=== PATIENT | female | born 1990 ===

== ENCOUNTER 2017-02-12 05:05 | Inpatient (IN) | payer OTHER ==
[~2017-02-12] VITALS: Ht 162.6 cm; Wt 121.6 kg
[2017-02-12 05:57] VITALS: BP 107/72
[2017-02-12 06:38] LABS: ABSOLUTE BASOPHIL COUNT 0 /CUMM (0.0-0.2); ABSOLUTE EOSINOPHIL COUNT 0.1 /CUMM (0.0-0.7); ABSOLUTE LYMPH COUNT 2.1 /CUMM (1.2-3.4); ABSOLUTE MONOCYTE COUNT 0.7 /CUMM (0.10-0.60); BASOPHIL % 0.1 % (0.0-2.0); EOSINOPHIL % 0.7 % (0-5); GRANULOCYTE % 75.9 % (42.2-75.2); HEMATOCRIT 34.7 % (37-47); MEAN CORPUSCULAR HGB 27.8 PG (27.0-31.0); MEAN CORPUSCULAR HGB CONC 32.6 G/DL (33.0-37.0); MEAN CORPUSCULAR VOLUME 85.2 FL (81.0-99.0); MEAN PLATELET VOLUME 8.1 FL (7.4-10.4); PLATELET COUNT 250 /CUMM (130-400); RBC DISTRIBUTION WIDTH 14.9 % (11.5-14.5); RED BLOOD CELL CT 4.07 /CUMM (4.20-5.40); WHITE BLOOD CELL COUNT 11.9 /CUMM (4.8-10.8)
--- NOTE | 2017-02-12 11:48 | History & Physical ---
See Addendum General Information and HPI MD Statement: I have seen and personally examined BLAS MATUTE and documented this H&P. The patient is a 26 year old female at [38] weeks and [3] days gestation who presented with a chief complaint of [spontaneous rupture of membranes]. Source of Information: patient Exam Limitations: no limitations History of Present Illness: 26 year old @ 38+2 weeks who reports SROM at 0345. Clear fluid noted. She came to where evaluated and amnisure was positive. She also relays that may have been slowly leaking the day prior. remarkable for obesity ( BMI 44.6), desires PPBTL, GBS+. 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 Last Menstrual Period: 7.28.16 Estimated Delivery Date: 02.23.17 Past metal sprayer History: none Past Pregnancies Past Pregnancies: Date of Delivery: Weight: 6+LBS Type of Delivery: vaginal Place of Delivery: [facility] Complications: NONE Medical History Blood Transfusion Hx: No Neurological: HEADACHES Cardiovascular: NONE Respiratory: NONE Gastrointestinal: NONE Hepatic: NONE Renal: nephrolithiasis, EVALUATED AT AT 29 WEEKS Psychiatric: NONE Endocrine: obesity Blood Disorders: NONE 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 Cardiovascular: Reports: no symptoms. Respiratory: Reports: no symptoms. GI: Reports: no symptoms. Genitourinary: Reports: no symptoms. Musculoskeletal: Reports: no symptoms. Skin: Reports: no symptoms. Neurological/Psychological: Reports: no symptoms. Hematologic/Endocrine: Reports: no symptoms. Immunologic/Allergic: Reports: no symptoms. Exam & Diagnostic Data Last 24 Hrs of Vital Signs/I&O Vital Signs Date Time Temp Pulse Resp B/P B/P Pulse O2 O2 Flow FiO2 Mean Ox Delivery Rate 02/12 0557 107/72 Intake & Output 02/12 1600 02/12 0800 02/12 0000 Intake Total Output Total Balance Patient 268 lb Weight Obstetric Exam Wgt Gained During : 8 LBS Pelvimetry: PROVEN TO 6.9LBS Dilation (cm): 2 Effacement (%): 50 Station: -4 Membranes: SROM Fluid: clear Fundal Height (cm): 40 Multiple Gestation? No Contractions: RARE #1 - FHR Baseline: 140 Category: 2 Estimated Weight: 6'13" ATU SCAN ON 02/10/17 Presentation: VTX BY US Patient for Induction? Yes Rodarte Score Rodarte Score Response Value Cervix Position: posterior 0 Cervix Consistency: medium 1 Cervix Effacement: 30-50% 1 Cervix Dilation: 1-2 cm 1 Cervix Station: -3 0 Total 3 Physical Exam General Appearance Alert, Oriented X3, Cooperative, No Acute Distress Cardiovascular Regular Rate, Normal S1, Normal S2 Lungs Clear to Auscultation, Normal Air Movement Abdomen Normal Bowel Sounds, Soft, No Tenderness, GRAVID Neurological Normal Gait, Normal Speech, Strength at 5/5 X4 Ext, Normal Tone Reproductive (FEMALE) Normal female genitalia Labs Blood Type & Rh: a POS Antibody Screen: neg Hct/Hgb & Platelets #1: 12.6 39.3 284 Hct/Hgb & Platelets #2: 11.6 38.3 253 Rubella: imm VDRL #1: neg VDRL #2: neg HbsAg: neg HIV #1: neg HIV #2 neg 1 Hr P Group B Strep: pos Initial Ultrasound: 7+6 Anatomy Ultrasound: 21.6, xy, Ultrasound for EFW: 6.13 Genetic Testing: neg hgb elec, cf, afp, first trimes screen, [id number] Last 24 Hrs of Labs/Ammon: Laboratory Tests 02/12/17 0615: CBC w Diff NO MAN DIFF REQ, RBC 4.07 L, MCV 85.2, MCH 27.8, RDW 14.9 H, MPV 8.1, Gran % 75.9 H, Lymphocytes % 17.2 L, Monocytes % 6.1, Eosinophils % 0.7, Basophils % 0.1, Absolute Granulocytes 9.0 H, Absolute Lymphocytes 2.1, Absolute Monocytes 0.7 H, Absolute Eosinophils 0.1, Absolute Basophils 0, PUBS MCHC 32.6 L 02/12/17 0520: Urine Color STRAW, Urine Clarity CLEAR, Urine pH 6.5, Ur Specific Kelford 1.015, Urine Protein NEG, Urine Ketones NEG, Urine Nitrite NEG, Urine Bilirubin NEG, Urine Urobilinogen 0.2, Ur Leukocyte Esterase NEG, Ur Microscopic EXAM NOT REQUIRED, Urine Hemoglobin NEG, Urine Glucose NEG 02/12/17 0514: Membrane Rupture POSITIVE Assessment/Plan Assessment/Plan: 26 year old @38+2, SROM, rare contractions. GBS+. placed on GBS prophylaxis at time of arrival. upon my exam of pt, regular contractions did not start. cvx post / 2/thick/very high. vtx presentation confirmed. pitocin ordered. LATE ENTRY: since starting pitocin, 2 decels noted just prior to 1130. mod variable to oscar of 70bpm x 1 min, followed by 2nd change in fhr to 90bpm. pitocin was at 2 mu/min. It was discontinued by RN , who did maternal repositioning and bolus of IVF. BP noted to be 80s/40s. (baseline 110s/70s). FHR improved spontaneously. Will continue close observation. Discussed with pt that if persistent cat 2 tracing, or if appears that fetus intolerant to induction , will recc c/section given the fact that remove from delivery, GBS +, and possibly ??ruptured >24hours. Questions answered. As Ranked By This Provider Problem List: 1. Core Measures/Miscellaneous Venous Thromboembolism VTE Risk Factors: / VTE Contraindications: No Contraindications VTE Diagnosis: No Beta Puneet Is Beta Puneet a Home Med? No Antibiotics Is Patient on Antibiotics? No Attending MD Review Statement Attending Statement Attending MD Statement: examined this patient, discussed with family, discussed w/nursing
--- NOTE | 2017-02-12 19:59 | PN- OBGYN ---
Surgical Brief Attending Note Brief Attending Note: pt without complaints. denies any pain VS: different BP cuffs have been used. with large cuff 80-90s/50s with average sized cuff on forearm 100-120/60-70 FHR 130s Cat 1 toco ctx q3-5min, irreg pit at 6mu/min a/p 38+2. Pit augmentation for SROM. possibly ROM>24hours. On GBS prophylaxis. Overall FHR tracing has been reassuring since resuming pitocin. Will continue close BP and FHR monitoring.
--- NOTE | 2017-02-12 20:21 | PN- OBGYN ---
Surgical Brief Attending Note Brief Attending Note: ADDENDUM: IMMEDIATELY AFTER LAST NOTE, HAD A VARIABLE X 2MIN WITH HENRY AROUND 80BPM. DISCONTINUOUS TRACING FOR THE FOLLOWING 10 MIN BUT SUSPECT RECOVERED TO 100'S BPM. CVX 2-3/50/-4/NO CHANGE, DIFFICULT EXAM FSE APPLIED. FHR IN LOW 100S AND THEN RETURNED TO BASELINE 130S AND GOOD VARIABILITY. LARGE CLEAR FLUID NOTED. SUSPECT THAT FOREBAG RUPTURED. PITOCIN WAS DISCONTINED.IT WAS AT 6MU/MIN A/P 38+6 SROM. PITOCIN AUGMENTATION. PT NOW REQUESTING EPIDURAL. PREVIOUSLY CAT 1, WITH RECENT EPISODE OF VARIABLES / DECELERATIONS BUT HAS IMPROVED AND RETURNED TO CAT 1. WILL CONTINUE ACTIVE MANAGMENT OF LABOR.
--- NOTE | 2017-02-12 20:53 | PN- OBGYN ---
Surgical Brief Attending Note Brief Attending Note: after continued observation, FHR had 2 additional variables to 80 bpm x 1-1.5min each. Pitocin was already off and pt with oxygen. Although has good variability , cervix reexamined and still 2-3/50/high. It is unlikely that fetus would tolerate active phase of labor and 2nd stage pushing. Pt advised to undergo section. Risks, benefits, alternatives of delivery discussed including risk of bleeding, infection, injury to other organs or fetus, need for additional procedures should complication occur. Questions answered and desires to proceed.
--- NOTE | 2017-02-12 23:05 | Operative Report ---
Operative/Inv Procedure Report Surgery Date: 02/12/17 Name of Procedure: PRIMARY LOW TRANSVERSE SECTION BILATERAL TUBAL LIGATION, VIA MODIFIED SHAYLA, RIGHT FIMBRIECTOMY Pre-Operative Diagnosis: TERM, 38+3 WEEKS, SPONTANEOUS RUPTURE OF MEMBRANES, FETUS INTOLERABLE TO AUGMENTATION, UNFAVORABLE CERVIX REMOTE FROM DELIVERY Post-Operative Diagnosis: SAME Estimated Blood Loss: 600ML Surgeon/Supervisor Poultry Processing: SUSIE GILL DO, MD Anesthesia: SPINAL WITH ASTROMORPH IV Fluids: 700ML Urine Output: 700ML PREOP, 200INTRAOP Drains: DEL CASTILLO CATHETER Microbiology: placenta, portion of right tube, right fimbria, portion of left Complications: NONE Condition: GOOD Operative Indication: This patient is a 26-year-old 4 para 10-1 who presented 38 and 3 weeks with spontaneous rupture of membranes. The patient relates a history of possible leakage of fluid on Monday, February 11 significant that was slowly leaking throughout the day however she did not present until Monday, February 12 after a large loss of fluid at 345. When evaluated the child center and pressure was found to be positive. The patient was admitted and penicillin administered for positive group B strep. History is also significant for obesity her BMI is 44. Upon evaluation later that morning cervix was found to be 2 cm, thick, high station. Presenting part was not palpable at which time ultrasound was performed and vertex presentation noted. Given previous history of vaginal delivery she was started on Pitocin. The patient experienced intermittent episodes of variables throughout the day. However heart rate would recover and be category 1 between these episodes. At about 8 PM however she experienced a episode of repetitive variables. An a few additional episodes of variables after that. Patient's cervix remained unchanged and station remained quite high. As she was remote from delivery she was advised on section. She was counseled the risks, benefits, alternatives of surgery including the risk of bleeding, infection, injury to other organs of the fetus, she stated verbal understanding of all the above and desires to proceed. Operative/Procedure Note Note: The patient was taken the operating room where anesthesia was obtained without difficulty. She was placed in the dorsal supine position with left lateral tilt. She was then prepared and draped in usual sterile fashion. A Pfannenstiel skin incision was made with the scalpel and carried down to the fascia with the scalpel. Fascia was incised with the scalpel and the incision was extended bilaterally with blunt dissection. The superior aspect of the fascial incision was tented up with Dougie clamps and rectus muscles dissected off with sharp and blunt dissection. Rectus muscles were in the midline. Peritoneum was identified and entered bluntly. Peritoneal incision was then extended bilaterally with good visualization of bladder. Bladder blade was inserted. The patient was noted to have a poorly developed lower uterine segment. A transverse incision was made with a scalpel and carried down carefully. Uterine incision was then extended bluntly. The incision was additionally extended on the left side with bandage scissors. The head was noted to be floating in the pelvis it was initially in right occiput transverse position. Initial attempts to deliver with fundal pressure were unsuccessful. A vacuum was placed on the 's head. 2 attempts were performed with 1 pop- off. Total suction time was about 10 seconds. The head was then delivered atraumatically. The shoulders and body were delivered atraumatically. Good cry was noted. The was then dried and stimulated and bulb suctioned. The cord was clamped and cut and the infant was handed to the awaiting pediatric team. Cord gases were sent. Placenta was delivered with gentle traction on the cord. Uterus was exteriorized and cleared of all clots and debris. Uterine incision was reapproximated with 0 Vicryl in a running locking fashion. 2 additional sutures were placed on the right aspect of the incision as well as in the midline for excellent hemostasis. Attention was then turned to the right fallopian tube which was grasped in the mid isthmic portion with a Arron clamp. The was doubly tied with 20 plain and a very small knuckle of tube was excised with Metzenbaum scissors. Due to being such a small specimen I additionally performed a right fimbriectomy. The fimbria was grasped with a Crystal and doubly tied with 20 plain. The fimbria was then excised with Metzenbaum scissors. Excellent hemostasis was noted. Attention was then turned to the left fallopian tube which was grasped with the mid isthmic portion with a Arron clamp. It was doubly tied with 20 plain gut and a small knuckle of tube was then excised without difficulty. Good hemostasis was noted when I reevaluated the patient's right fallopian tube for hemostasis the pedicle had a small amount of bleeding for which additional suture was placed on both free ends of the mid isthmic portion of the tube. Excellent hemostasis was then noted. Uterine incision was reevaluated and a small amount of bleeding again was noted midline for which excellent hemostasis was obtained. Peritoneum was reapproximated with 3-0 polysorb. Fascia reapproximated with 0-polysorb . Subcutaneous tissues irrigated and reapproximated with 3-0 polysorb.skin closed with 4-0 biosyn on a jasmin needle in a subcuticular fashion. All sponge, lap, and needle counts are correct x 2. Findings: FETUS IN ROT POSITION, FLOATING IN UTERUS NL APPEARING BILATERAL FALLOPIAN TUBES AND OVARIES 7 POUND MALE INFANT WITH APGARS 8,9,9 DELIVERED AT 2145 ON 02/12/17 Discharge Disposition: CBC
[2017-02-13 08:37] LABS: ABSOLUTE BASOPHIL COUNT 0 /CUMM (0.0-0.2); ABSOLUTE EOSINOPHIL COUNT 0 /CUMM (0.0-0.7); ABSOLUTE GRANULOCYTE CT 15.1 /CUMM (1.4-6.5); ABSOLUTE LYMPH COUNT 1.6 /CUMM (1.2-3.4); ABSOLUTE MONOCYTE COUNT 0.6 /CUMM (0.10-0.60); BASOPHIL % 0.2 % (0.0-2.0); EOSINOPHIL % 0 % (0-5); MEAN CORPUSCULAR HGB 28.4 PG (27.0-31.0); MEAN CORPUSCULAR VOLUME 83.6 FL (81.0-99.0); MEAN PLATELET VOLUME 8.4 FL (7.4-10.4); RBC DISTRIBUTION WIDTH 14.3 % (11.5-14.5); RED BLOOD CELL CT 3.71 /CUMM (4.20-5.40); WHITE BLOOD CELL COUNT 17.3 /CUMM (4.8-10.8)
[2017-02-13 08:59] LABS: GRANULOCYTE % 87.2 % (42.2-75.2); PLATELET COUNT 243 /CUMM (130-400)
--- NOTE | 2017-02-13 09:25 | PN- OBGYN ---
Surgical Brief Attending Note Brief Attending Note: PPD#1 pt is sitting in chair. no complaints, tolerate clear fluids diet, paredes in place. PE: VSS CV RRR lungs CTA B/L Abdomen: soft, BS(+). uterus firm, fundus below umbilicus. incision dressing blood stained.lochia mild Ext: DCT (-) A/P: 26yo, s/p PLTCS, PPD#1 1. encourage ambulation and 2. pain management as needed 3. RT PP care
--- NOTE | 2017-02-14 11:35 | PN- Post Delivery/GYN ---
Subjective Subjective: feeling well oob to shower Review of Systems Constitutional: Reports: no symptoms. Denies: chills, fever. EENTM: Denies: blurred vision, double vision, visual changes. Cardiovascular: Denies: chest pain. Respiratory: Denies: cough, short of breath. Gastrointestinal: Denies: diarrhea, nausea, vomiting. Neurological/Psychological: Denies: anxiety, depressed. Objective Last 24 Hrs of Vital Signs/I&O vss Physical Exam General Appearance Alert, Oriented X3, Cooperative, No Acute Distress Cardiovascular Regular Rate Lungs Clear to Auscultation Abdomen Soft, incision clean and dry Neurological Normal Gait Pelvic (FEMALE) lochia serosanganous Current Medications: Current Medications Sig/Jimena Start time Last Medication Dose Route Stop Time Status Admin Acetaminophen 650 MG Q4P PRN 02/12 2300 AC PO Bisacodyl 10 MG DAILY NEEDED PRN 02/12 2300 AC SD Bisacodyl 5 MG DAILY NEEDED PRN 02/12 2300 AC PO Diphenhydramine HCl 25 MG Q6P PRN 02/13 013 DC 02/13 IV 0134 Docusate Sodium 100 MG BID 02/13 1000 AC 02/13 PO 2341 Enoxaparin Sodium 40 MG DAILY 02/13 1000 AC 02/14 SC 1028 Hydroxyzine HCl 50 MG AT BEDTIME NEED.. 02/13 0000 AC PO Ibuprofen 800 MG .STK-MED ONE 02/13 2330 DC PO 02/13 2331 Ibuprofen 800 MG .STK-MED ONE 02/13 1644 DC PO 02/13 1645 Ibuprofen 800 MG Q6P PRN 02/12 2300 AC 02/14 PO 0629 Ketorolac 30 MG Q6H 02/12 230 DC 02/13 Tromethamine IV 02/13 1701 1109 Lactated Ringer's 1,000 ML Q8H 02/12 2300 DC IV Magnesium Hydroxide 30 ML DAILY NEEDED PRN 02/12 2300 AC PO Metoclopramide HCl 10 MG Q6P PRN 02/13 130 DC IV Naloxone HCl 0.2 MG DAILY NEEDED PRN 02/13 130 DC IV Oxycodone/ 1 TAB Q4P PRN 02/12 2300 AC 02/14 Acetaminophen PO 0629 Oxycodone/ 2 TAB Q4P PRN 02/12 2300 AC Acetaminophen PO Senna 187 MG AT BEDTIME NEED.. 02/12 2300 AC PO Simethicone 80 MG Q6 02/13 0600 AC 02/14 PO 0629 Assessment/Plan Assessment/Plan pod #2 vss afebrile plan OOB advance diet Problem List: 1. Attending MD Review Statement Attending Statement Attending MD Statement: examined this patient, discussed with family, discussed with nursing
[2017-02-15] MEDS ORDERED: PRENATAL TABLE1 EAC2 PO (09:37)
[2017-02-15] MEDS ORDERED: FERROUS SULFAT325 M3 PO (09:37)
[2017-02-15] MEDS ORDERED: PERCOCET 5-3251 EACH PO (09:37)
[2017-02-15] MEDS ORDERED: DOCUSATE SODIU100 M3 PO (09:37)
[2017-02-15] MEDS ORDERED: IBUPROFEN800 M1 PO (09:37)
--- NOTE | 2017-02-15 10:55 | PN- Post Delivery/GYN ---
Subjective Subjective: Doing well - ready for discharge home Review of Systems: Neg for Cardiac, pulmonary GI complaints Objective Last 24 Hrs of Vital Signs/I&O Afebrile VSS Physical Exam General Appearance Alert, Oriented X3, Cooperative, No Acute Distress Skin No Rashes Cardiovascular Regular Rate Lungs Normal Air Movement Abdomen Normal Bowel Sounds, Soft, No Tenderness, No Hepatospenomegaly, Uterus firm midline 3 FB below umbilicus nontender, incision clean, dry, intact Neurological Normal Gait, Normal Speech Extremities No Tenderness/Swelling Reproductive (FEMALE) Normal female genitalia, avge lochia Current Medications: Current Medications Sig/Jimena Start time Last Medication Dose Route Stop Time Status Admin Acetaminophen 650 MG Q4P PRN 02/12 2300 DCD PO Bisacodyl 10 MG DAILY NEEDED PRN 02/[address] Bisacodyl 5 MG DAILY NEEDED PRN 02/12 2300 DCD PO Docusate Sodium 100 MG .STK-MED ONE 02/14 2237 DC PO 02/14 2238 Docusate Sodium 100 MG BID 02/13 1000 DCD 02/15 PO 1046 Enoxaparin Sodium 40 MG DAILY 02/13 1000 DCD 02/15 SC 1046 Hydroxyzine HCl 50 MG AT BEDTIME NEED.. 02/13 0000 DCD PO Ibuprofen 800 MG .STK-MED ONE 02/14 2347 DC PO 02/14 2348 Ibuprofen 800 MG .STK-MED ONE 02/14 1858 DC PO 02/14 1859 Ibuprofen 800 MG Q6P PRN 02/12 2300 DCD 02/15 PO 0634 Magnesium Hydroxide 30 ML DAILY NEEDED PRN 02/12 2300 DCD PO Oxycodone/ 1 TAB .STK-MED ONE 02/14 1859 DC Acetaminophen PO 02/14 1900 Oxycodone/ 1 TAB Q4P PRN 02/12 2300 DCD 02/15 Acetaminophen PO 0634 Oxycodone/ 2 TAB Q4P PRN 02/12 2300 DCD Acetaminophen PO Senna 187 MG AT BEDTIME NEED.. 02/12 2300 DCD PO Simethicone 80 MG Q6 02/13 0600 DCD 02/15 PO 0634 Assessment/Plan Assessment/Plan Stable POD/ PPD #3 ready for discharge home RX percocet, motrin, pn vits and daily iron prn colace Problem List: 1. 2. delivery delivered 3. Morbid obesity
--- NOTE | 2017-03-02 10:22 | Discharge Summary ---
See Addendum Visit Information Visit Dates Admission Date: 02/12/17 Discharge Date: 02/15/17 Hospital Course Course Attending Physician: SUSIE GILL DO Primary Care Physician: PATIENT HAS NO PRIMARY CARE DR Hospital Course: This patient is a 26-year-old 4 para 1021 who presented 38 and 3 weeks with spontaneous rupture of membranes. The patient relates a history of possible leakage of fluid on February 11 significant that was slowly leaking throughout the day however she did not present until February 12 after a large loss of fluid at 0345. When evaluated the child center and amniosure was found to be positive. The patient was admitted and penicillin administered for positive group B strep. History is also significant for obesity her BMI is 44. Upon evaluation later that morning cervix was found to be 2 cm, thick, high station. Presenting part was not palpable at which time ultrasound was performed and vertex presentation noted. Given previous history of vaginal delivery she was started on Pitocin. The patient experienced intermittent episodes of variables throughout the day. However heart rate would recover and be category 1 between these episodes. At about 8 PM however she experienced an episode of repetitive variables. And a few additional episodes of variables after that. Patient's cervix remained unchanged and station remained quite high. As she was remote from delivery she was advised on section. Her surgery was unremarkable. Similarly her postop course was unremarkable. She was discharged on postoperative day #3 in good condition. She is involuting, voiding, tolerating pain and by mouth, she had appropriate lochia. Complications: None Allergies: Coded Allergies: No Known Allergies (02/12/17) Significant Procedures: Primary low transverse section, bilateral tubal ligation via modified Hilton and right fimbriectomy Disposition Summary Disposition Principal Diagnosis: Term , delivered Additional Diagnosis: Nonreassuring heart tones, intolerance to labor/induction, prolonged rupture of membranes, group B strep positive Discharge Disposition: home or self care Discharge Instructions General Discharge Information Code Status: Full Code Patient's Diet: Regular Patient's Activity: Pelvic rest and no heavy lifting for 6 weeks Follow-Up Instructions/Appts: Call for severe persistent pain, heavy vaginal bleeding or fever greater than 100F Medications at Discharge Discharge Medications: Start taking the following new medications: Ibuprofen (Ibuprofen) 800 MG TABLET 800 Milligram ORAL EVERY SIX HOURS NEEDED as needed for UTERINE CRAMPING Qty = 60 Refills = 6 Comments: Last Taken: 02/15/17 Time: 0630 Oxycodone HCl/Acetaminophen (Percocet 5-325 MG Tablet) 5 MG-325 MG TABLET 1-2 Tablet ORAL EVERY 4 HOURS NEEDED as needed for PAIN SCALE 4-10 Qty = 30 No Refills Comments: Last Taken: 02/15/17 Time: 06 Docusate Sodium (Docusate Sodium) 100 MG CAPSULE 100 Milligram ORAL TWICE DAILY as needed for constipation Qty = 30 Refills = 6 Comments: Last Taken: 02/15/17 Time: 1030 Vit No.130/Iron/FA ( Tablet) 27 MG IRON-800 MCG TABLET 1 Tablet ORAL DAILY Qty = 30 Refills = 6 Ferrous Sulfate (Ferrous Sulfate) 325 MG (65 MG IRON) TABLET 1 Tablet ORAL DAILY Qty = 30 Refills = 6 Copies To: SUSIE GILL DO
== END 2017-02-15 11:49 | DRG 540 ==
LOC: CBCO 05:05 → GNO 05:45
PROVIDERS: ADMIT Obstetrics & Gynecology
PROC: 10D00Z1 Extraction of Products of Conception, Low, Open Approach (ICD-10-PCS; principal; 2017-02-12)
PROC: 0UL70ZZ Occlusion of Bilateral Fallopian Tubes, Open Approach (ICD-10-PCS; principal; 2017-02-12)
DX: O76 Abnormality in fetal heart rate and rhythm complicating labor and delivery (principal); Z3A.38 38 weeks gestation of pregnancy; Z37.0 Single live birth; O99.824 Streptococcus B carrier state complicating childbirth; O99.214 Obesity complicating childbirth; Z30.2 Encounter for sterilization
CPT/HCPCS: GNOP; GNOS; 36415; 81003; 84112; 87086; 88302; 88307; G0463; J0690; J1200; J1650; J1885; J7120